=== PATIENT | male | born 1950 | race Caucasian/White ===

== ENCOUNTER 2022-04-01 10:28 | Outpatient (CLI) | payer MEDICARE, SELFPAY ==
--- NOTE | ~2022-04-01 | US_ITS ---
EXAMINATION: US aorta DATE: 04/01/2022 11:36 INDICATION: Abdominal aortic aneurysm TECHNIQUE: Grayscale, color Doppler, and pulsed Doppler images of the aorta and common iliac arteries were obtained. COMPARISON: None. FINDINGS: The proximal aorta measures 2.6 cm AP. The mid aorta measures 2.1 cm AP. Uniform aneurysm in the dist al aorta measuring up to 3.5 cm in maximal AP diameter. The right common iliac artery measures 1.0 cm . The left common iliac artery measures 1.3 cm. IMPRESSION: 1. Fusiform ectasia of the infrarenal aorta which measures up to 3.5 cm in maximal diameter. Reviewed, dictated and finalized at location A. IMPRESSION: 1. Fusiform ectasia of the infrarenal aorta which measures up to 3.5 cm in maxi mal diameter.
--- NOTE | ~2022-04-01 | CT_ITS ---
EXAMINATION: CT lung screening DATE: 04/01/2022 11:38 INDICATION: Personal history of nicotine dependence, current smoker with 50 pack year history TECHNIQUE: Computed tomography (CT) of the chest was performed without intravenous contrast. The dose -length product (DLP) was 105.15 mGy-cm. Automated exposure control and iterative reconstruction tech [employer] were employed. COMPARISON: None FINDINGS: There is moderate emphysema. There is a 4 mm nodule of the right middle lobe in association with the minor fissure on image 74. There is a 5 mm nodule of the left lung apex. The lungs are free of acute opacities. No pleural effusion or pneumothorax. Calcified pulmonary nodules and calcified r ight hilar and mediastinal lymph nodes are consistent with old granulomatous disease. No pathological ly enlarged thoracic lymph nodes are identified. The heart size is normal. There is moderate thoracic spondylosis. Calcified coronary artery atherosclerosis is noted. The gallbladder is surgically absen t. There is a 2.7 cm cyst of the liver there is a 2.5 cm cyst of the right kidney upper pole. Punctat e calcifications of the liver and spleen likely represent healed granulomatous disease. IMPRESSION: 1. Lung-RADS category 2: Benign appearance or behavior. Continue annual screening with noncontrast lo w-dose chest CT in 12 months. Reviewed, dictated and finalized at location B. IMPRESSION: 1. Lung-RADS category 2: Benign appearance or behavior. Continue annual screeni ng with noncontrast low-dose chest CT in 12 months.
[2022-04-01 12:04] LABS: Hematocrit 45.1 % (42.0-52.0); Hemoglobin 15.2 g/dL (14.0-18.0); Mean Corpuscular HGB Conc 33.7 g/dl (32-36); Mean Corpuscular Hemoglobin 34.2 pg (26-34); Mean Corpuscular Volume 101.3 fl (80-100); Mean Platelet Volume 10.9 fl (7.4-10.4); Platelet Count Result 210 k/mm3 (150-375); Red Blood Count 4.45 M/mm3 (4.6-6.20); Red Cell Distribution Width 13.7 % (11.5-14.5); White Blood Count 8.7 K/mm3 (4.5-10.0)
[2022-04-01 12:29] LABS: Alanine Aminotransferase 27 U/L (6-50); Albumin Level 4.6 g/dL (3.5-5.1); Alkaline Phosphatase 85 U/L (38-126); Anion Gap 7 mmol/L (8-16); Aspartate Amino Transferase 37 U/L (17-59); Bilirubin,Total 0.7 mg/dL (0.2-1.3); Blood Urea Nitrogen 16 mg/dL (9-20); Calcium 9.7 mg/dL (8.4-10.2); Carbon Dioxide 30 mmol/L (22-30); Chloride 105 mmol/L (98-107); Cholesterol 131 mg/dL (0-200); Estimated Glomerular Filt Rate > 60; Glucose 102 mg/dL (65-110); HDL Direct 38 mg/dL; Potassium 4.2 mmol/L (3.4-5.0); Sodium 142 mmol/L (137-145); Triglycerides 105 mg/dL (<150)
[2022-04-01 12:41] LABS: LDL Cholesterol Direct 69 mg/dL
[2022-04-01 13:01] LABS: Prostate Specific Antigen 2.5 ng/mL (< OR = 4.0)
[2022-04-01 13:20] LABS: Free T4 Free Thyroxine 1.17 ng/mL (0.78-2.19)
== END 2022-04-01 10:29 | disposition home or self-care (01) ==
PROVIDERS: PCP Internal Medicine; Visit Provider Internal Medicine
DX: Z12.2 Encounter for screening for malignant neoplasm of respiratory organs (principal); I10 Essential (primary) hypertension; Z12.5 Encounter for screening for malignant neoplasm of prostate; Z87.891 Personal history of nicotine dependence; E29.1 Testicular hypofunction
CPT/HCPCS: 36415; 71271; 76775; 80053; 80061; 84153; 84439; 84443; 85027; G0103